=== PATIENT | female | born 1995 | race Caucasian/White ===

== ENCOUNTER 2023-12-03 09:06 | Emergency (ER) | payer OTHER ==
[2023-12-03] MEDS ORDERED: SMZ./TMP. 800/160 MG TABLET ONE (09:48)
[2023-12-03] MEDS ORDERED: IBUPROFEN 400 MG TAB ONE (09:48)
[2023-12-03] MEDS ORDERED: IBUPROFEN 200 MG TAB PO ONE (09:48)
[2023-12-03] MEDS ORDERED: levoFLOXacin 750 MG TAB ONE (09:49)
--- NOTE | 2023-12-03 09:53 | EDPHYS ---
Physician Documentation [facility] Name: Kaitlyn Roach Age: 28 yrs Sex: Female : 1995 Arrival Date: 12/03/2023 Time: 09:06 Bed 14 Private MD: ED Physician Live Williamson HPI: 12/02 09:40 This 28 yrs old Female presents to ER via Ambulatory with complaints of Ear js Pain. 09:40 The patient presents with pain, swelling, tenderness. The complaints affect the right js ear. Modifying factors: The symptoms are alleviated by covering ear, the symptoms are aggravated by loud noise, touching. Associated signs and symptoms: Pertinent positives: sore throat. Severity of symptoms: At their worst the symptoms were mild moderate in the emergency department the symptoms are worse markedly. The patient has not experienced similar symptoms in the past. Historical: - Allergies: 09: Amoxicillin; aa5 - PMHx: : None; aa5 - PSHx: 09:13 Cholecystectomy; aa5 - Immunization history:: Adult Immunizations unknown. - Infectious Disease History:: Denies. - Social history:: Smoking status: Patient denies any tobacco usage or history of. ROS: :43 Constitutional: Negative for fever, chills, and weight loss, Eyes: Negative for injury, js pain, redness, and discharge, Neck: Negative for injury, pain, and swelling, Cardiovascular: Negative for chest pain, palpitations, and edema, Respiratory: Negative for shortness of breath, cough, wheezing, and pleuritic chest pain, Abdomen/GI: Negative for abdominal pain, nausea, vomiting, diarrhea, and constipation, Back: Negative for injury and pain, : Negative for injury, bleeding, discharge, and swelling, MS/Extremity: Negative for injury and deformity, Skin: Negative for injury, rash, and discoloration, Neuro: Negative for headache, weakness, numbness, tingling, and seizure, Psych: Negative for depression, anxiety, suicide ideation, homicidal ideation, and hallucinations, Allergy/Immunology: Negative for hives, rash, and allergies, Endocrine: Negative for neck swelling, polydipsia, polyuria, polyphagia, and marked weight changes, Hematologic/Lymphatic: Negative for swollen nodes, abnormal bleeding, and unusual bruising, :43 ENT: Positive for ear pain, Exam: 09:43 Constitutional: This is a well developed, well nourished patient who is awake, alert, js and in no acute distress. Head/Face: Normocephalic, atraumatic. Eyes: Pupils equal round and reactive to light, extra-ocular motions intact. Lids and lashes normal. Conjunctiva and sclera are non-icteric and not injected. Cornea within normal limits. Periorbital areas with no swelling, redness, or edema. Neck: Trachea midline, no thyromegaly or masses palpated, and no cervical lymphadenopathy. Supple, full range of motion without nuchal rigidity, or vertebral point tenderness. No Meningismus. Chest/axilla: Normal chest wall appearance and motion. Nontender with no deformity. No lesions are appreciated. Cardiovascular: Regular rate and rhythm with a normal S1 and S2. No gallops, murmurs, or rubs. Normal PMI, no JVD. No pulse deficits. Respiratory: Lungs have equal breath sounds bilaterally, clear to auscultation and percussion. No rales, rhonchi or wheezes noted. No increased work of breathing, no retractions or nasal flaring. Abdomen/GI: Soft, non-tender, with normal bowel sounds. No distension or tympany. No guarding or rebound. No evidence of tenderness throughout. Back: No spinal tenderness. No costovertebral tenderness. Full range of motion. Pelvic Exam: Normal external genitalia. Speculum exam with closed cervical os, no discharge or bleeding noted. Bimanual exam with normal adnexa, no adnexal or cervical motion tenderness. Normal uterus. Female : Normal external genitalia. Skin: Warm, dry with normal turgor. Normal color with no rashes, no lesions, and no evidence of cellulitis. MS/ Extremity: Pulses equal, no cyanosis. Neurovascular intact. Full, normal range of motion. Neuro: Awake and alert, GCS 15, oriented to person, place, time, and situation. Cranial nerves II-XII grossly intact. Motor strength 5/5 in all extremities. Sensory grossly intact. Cerebellar exam normal. Normal gait. Psych: Awake, alert, with orientation to person, place and time. Behavior, mood, and affect are within normal limits. 09:43 ENT: Ear canal(s): erythema, swelling, that is moderate, of the right canal, Vital Signs: 09:12 BP 115 / 69; Pulse 85; Resp 16 S; Temp 98.7(O); Pulse Ox 100% on R/A; Weight 65.32 kg aa5 (R); Height 5 ft. 4 in. (R); 09:12 Body Mass Index 24.72 (65.32 kg, 162.56 cm) aa5 MDM: 09:15 Patient medically screened. [facility] 09:50 Differential diagnosis: otitis media, otitis externa. Data reviewed: vital signs, js nurses notes. Consideration of Admission/Observation Escalation of care including admission/observation considered. I considered the following discharge prescriptions or medication management in the emergency department Medications were administered in the Emergency Department. See MAR. Historians other than the Patient: none. Care significantly affected by the following chronic conditions: none. Counseling: I had a detailed discussion with the patient and/or guardian regarding the historical points, exam findings, and any diagnostic results supporting the discharge/admit diagnosis, the need for outpatient follow up, for definitive care, an ENT specialist. Administered Medications: 09:52 Drug: Trimethoprim-Sulfamethoxazole PO (160 mg-800 mg (DS) 1 tablet PO once Route: PO; aa5 10:14 Follow up: Response: No adverse reaction aa5 09:52 Drug: Ibuprofen PO 600 mg PO once Route: PO; aa5 10:14 Follow up: Response: No adverse reaction aa5 09:52 Drug: LevOfloxacin PO 750 mg PO once Route: PO; aa5 10:14 Follow up: Response: No adverse reaction aa5 Disposition Summary: 12/03/23 09:53 Discharge Ordered Notes: Location: Home [facility] Problem: new js Symptoms: have improved js Condition: Stable js Diagnosis - Other infective otitis externa, right ear js Followup: js - With: Private Physician - When: 2 - 3 days - Reason: Recheck today's complaints, Continuance of care, Re-evaluation by your physician Followup: js - With: Clara Jackson MD - When: 2 - 3 days - Reason: Recheck today's complaints, Re-evaluation by your physician Discharge Instructions: - Discharge Summary Sheet js - Otitis Externa js - Otitis Externa, [id number] js Forms: - Medication Reconciliation Form js - Antibiotic Education js - Prescription Opioid Use js - Patient Portal Instructions js - Leadership Thank You Letter js - Work release form aa5 Prescriptions: - acetaminophen-codeine 300-30 mg Oral tablet - take 2 tablet ORAL route every 6 hours as needed for pain; 20 tablet; Refills: js 0, Product Selection Permitted - Clindamycin HCl 300 mg Oral capsule - take 1 capsule ORAL route every 6 hours for 7 days; 28 capsule; Refills: 0, js Product Selection Permitted - Mirela-D 12 Hour 60-120 mg Oral Tablet Sustained Release 12 hr - take 1 tablet ORAL route every 12 hours As needed; 20 tablet; Refills: 0, js Product Selection Permitted - Fluconazole 200 mg Oral tablet - take 1 tablet ORAL route once daily; 3 tablet; Refills: 0, Product Selection js Permitted - levofloxacin 750 mg Oral tablet - take 1 tablet ORAL route once daily; 7 tablet; Refills: 0, Product Selection js Permitted Signatures: Live Williamson MD MD cha Calderon, Audri RN RN aa5 Corrections: (The following items were deleted from the chart) 09:13 09:13 PMHx: UTI; aa5 aa5
--- NOTE | 2023-12-03 09:53 | ER ---
Nurse's Notes [facility] Name: Kaitlyn Roach Age: 28 yrs Sex: Female : 1995 Arrival Date: 12/03/2023 Time: 09:06 Bed 14 Private MD: Diagnosis: Other infective otitis externa, right ear Presentation: 12/02 09:12 Chief complaint: Patient states: milagros ear pain x 1 week, worse to right ear. Completed aa5 z-pack without relief. Coronavirus screen: At this time, the client does not indicate any symptoms associated with coronavirus-19. Ebola Screen: Patient denies travel to an Ebola-affected area in the 21 days before illness onset. Initial Sepsis Screen: Does the patient meet any 2 criteria? No. Patient's initial sepsis screen is negative. Does the patient have a suspected source of infection? No. Patient's initial sepsis screen is negative. Risk Assessment: Do you want to hurt yourself or someone else? Patient reports no desire to harm self or others. Onset of symptoms was November 2023. 09:12 Method Of Arrival: Ambulatory aa5 09:12 Acuity: MOE 5 aa5 Historical: - Allergies: 09:13 Amoxicillin; aa5 - PMHx: 09:13 None; aa5 - PSHx: 09:13 Cholecystectomy; aa5 - Immunization history:: Adult Immunizations unknown. - Infectious Disease History:: Denies. - Social history:: Smoking status: Patient denies any tobacco usage or history of. Screenin:15 [facility] ED Fall Risk Assessment (Adult) History of falling in the last 3 months, aa5 including since admission No falls in past 3 months (0 pts) Confusion or Disorientation No (0 pts) Intoxicated or Sedated No (0 pts) Impaired Gait No (0 pts) Mobility Assist Device Used No (0 pt) Altered Elimination No (0 pt) Score/Fall Risk Level 0 - 2 = Low Risk Oriented to surroundings, Maintained a safe environment, Educated pt \T\ family on fall prevention, incl call for assistance when getting out of bed. Abuse screen: Denies threats or abuse. Nutritional screening: No deficits noted. Tuberculosis screening: No symptoms or risk factors identified. Assessment: 09:12 General: Appears uncomfortable, Behavior is calm, cooperative. Pain: Complains of pain aa5 in right ear and left ear Pain currently is 8 out of 10 on a pain scale. Neuro: Level of Consciousness is awake, alert, obeys commands, Oriented to person, place, time, situation. Cardiovascular: Patient's skin is warm and dry. Respiratory: Airway is patent Respiratory effort is even, unlabored, Respiratory pattern is regular, symmetrical. GI: No signs and/or symptoms were reported involving the gastrointestinal system. : No signs and/or symptoms were reported regarding the genitourinary system. EENT: Reports pain in right ear and left ear. Derm: Skin is pink, warm \T\ dry. Musculoskeletal: Range of motion: intact in all extremities. 10:14 Reassessment: Patient is alert, oriented x 3, equal unlabored respirations, skin aa5 warm/dry/pink. Vital Signs: 09:12 BP 115 / 69; Pulse 85; Resp 16 S; Temp 98.7(O); Pulse Ox 100% on R/A; Weight 65.32 kg aa5 (R); Height 5 ft. 4 in. (R); 09:12 Body Mass Index 24.72 (65.32 kg, 162.56 cm) aa5 ED Course: 09:09 Patient arrived in ED. mg5 09:12 Arm band placed on. aa5 09:12 Patient has correct armband on for positive identification. Bed in low position. Call aa5 light in reach. Side rails up X 1. 09:13 Triage completed. aa5 09:15 Faby Baumann, RN is Primary Nurse. aa5 09:15 Live Williamson MD is Attending Physician. js 09:52 Clara Jackson MD is Referral Physician. js 10:14 No provider procedures requiring assistance completed. Patient did not have IV access aa5 during this emergency room visit. Administered Medications: 09:52 Drug: Trimethoprim-Sulfamethoxazole PO (160 mg-800 mg (DS) 1 tablet PO once Route: PO; aa5 10:14 Follow up: Response: No adverse reaction aa5 09:52 Drug: Ibuprofen PO 600 mg PO once Route: PO; aa5 10:14 Follow up: Response: No adverse reaction aa5 09:52 Drug: LevOfloxacin PO 750 mg PO once Route: PO; aa5 10:14 Follow up: Response: No adverse reaction aa5 Medication: 10:14 VIS not applicable for this client. aa5 Outcome: 09:53 Discharge ordered by . js 10:14 Discharged to home ambulatory, aa5 10:14 Condition: stable 10:14 Discharge instructions given to patient, Instructed on discharge instructions, follow up and referral plans. medication usage, Demonstrated understanding of instructions, follow-up care, medications, Prescriptions given X 5 10:15 Patient left the ED. aa5 Signatures: Live Williamson MD MD cha Calderon, Audri, RN RN aa5 Liza Salvador mg5 Corrections: (The following items were deleted from the chart) 09:13 09:13 PMHx: UTI; aa5 aa5
[2023-12-03 10:46] VITALS: BP 115/69; TEMP 98.7; O2SAT 100
== END 2023-12-03 10:15 | disposition home or self-care (01) ==
LOC: ER 09:06
DX: H60.391 Other infective otitis externa, right ear (principal); Z88.1 Allergy status to other antibiotic agents
CPT/HCPCS: 99283

== ENCOUNTER 2024-10-31 13:09 | Emergency (ER) | payer SELFPAY ==
[2024-10-31 14:42] LABS: Specific Gravity 1.006 (1.005-1.030)
[2024-10-31 14:43] LABS: Specific Gravity 1.008 (1.005-1.030); Sqamous Epithelial <5 /HPF (None Seen); Urine Bacteria None Seen /HPF (<20); Urine Bilirubin NEGATIVE (Negative); Urine Blood Negative (Negative); Urine Clarity Turbid (Clear); Urine Color Colorless (Yellow); Urine Culture Reflex Order NOT NEEDED; Urine Glucose NEGATIVE (Negative); Urine Ketones NEGATIVE (Negative); Urine Microscopic Reflex YN ORDER UMIC; Urine Mucus Slight /HPF (None Seen); Urine Nitrite NEGATIVE (Negative); Urine Protein NEGATIVE (Negative); Urine RBC <5 /HPF (None Seen); Urine Urobilinogen Normal (Normal); Urine WBC <5 /HPF (<5)
[2024-10-31 14:44] LABS: Absolute Basophils 0.1 K/uL (0-0.5); Absolute Eosinophils 0.1 K/uL (0-0.5); Absolute Monocytes 0.5 K/uL (0.1-1.3); Absolute Neutrophil 5.7 K/uL (1.8-8.0); Basophils % 0.9 % (0-1.3); Eosinophils % 1.3 % (0-4.4); Hematocrit 42.9 % (36.0-45.0); Hemoglobin 14.8 g/dL (12.0-15.0); Lymphocytes % 24.3 % (15.3-44.8); MCH 29.9 pg (27.0-35.0); MCHC 34.4 g/dL (32.0-36.0); MCV 87.1 fL (80-100); MPV 9.1 fL (7.6-11.3); Monocytes % 5.9 % (3.3-12.3); Neutrophils % 67.6 % (41.7-73.7); Nucleated Red Blood Cells % 0.2 % (0-0); Platelets 319 thou/uL (152-406); RBC Red Blood Cell Count 4.93 M/uL (3.86-4.86); Red Cell Distribution Width 13.6 % (12.1-15.2)
[2024-10-31 15:13] LABS: Albumin 4.1 g/dL (3.4-5.0); Albumin/Globulin Ratio 0.9 (1.1-1.8); Anion Gap 10.5 mEq/L (5.0-15.0); Bilirubin Total 0.4 mg/dL (0.2-1.0); Globulin 4.4 g/dL (2.3-3.5); Potassium 3.5 mEq/L (3.5-5.1); Protein, Total 8.5 g/dL (6.4-8.2)
[2024-10-31] MEDS ORDERED: FAMOTIDINE 20 MG/2 ML VIAL IV ONE (15:19)
[2024-10-31] MEDS ORDERED: ONDANSETRON 4 MG/2 ML VIAL ONE (15:19)
[2024-10-31] MEDS ORDERED: MORPHINE 4 MG/ML SYR ONE (15:19)
[2024-10-31] MEDS ORDERED: NA CHLORIDE 0.9% 1,000 ML ONE (15:19)
--- NOTE | 2024-10-31 15:46 | RAD REPORT ---
EXAMINATION: CT ABDOMEN AND PELVIS WITH CONTRAST CLINICAL INDICATION: Abdominal pain TECHNIQUE: CT abdomen and pelvis was performed, after the administration of 100 cc Isovue-300.. Sagit jazmin and coronal reconstructions were obtained. One or more of the following dose reduction techniques were used: Automated exposure control, adjustment of the mA and kV according to patient si ze, and iterative reconstruction. Unless otherwise specified, incidental findings do not require dedicated imaging follow-up. [id number]. Oral contrast was not given which limits evaluation of bowel and appendix. COMPARISON: .2016 FINDINGS: Cholecystectomy. Left lobe of the liver is prominent. Liver otherwise unremarkable spleen, pancreas, adrenals and kidneys appear unremarkable No evidence of diverticulitis. Normal appendix. Small umbilical hernia. No adnexal mass. : IMPRESSION: No acute abnormality displayed
[2024-10-31] MEDS ORDERED: MAGNES/ALUMIN/SIMET 30ML UCUP ONE (16:43)
[2024-10-31] MEDS ORDERED: LIDOCAINE VISCOUS 2% 10ML ORAL SOLN ONE (16:43)
--- NOTE | 2024-10-31 16:45 | ER ---
Nurse's Notes [facility] Name: Kaitlyn Roberts Age: 29 yrs Sex: Female : 1995 Arrival Date: 10/31/2024 Time: 13:09 Bed 23 Private MD: Diagnosis: Abdominal tenderness;Abdominal pain, Generalized;Vomiting Presentation: 10/31 13:29 Chief complaint: Patient states: she started having abdominal pain, nausea, dizziness ap3 and bloating yesterday. patient currently rates her pain as a 9/10 on the pain scale. Coronavirus screen: At this time, the client does not indicate any symptoms associated with coronavirus-19. Ebola Screen: No symptoms or risks identified at this time. Initial Sepsis Screen: Does the patient meet any 2 criteria? No. Patient's initial sepsis screen is negative. Does the patient have a suspected source of infection? No. Patient's initial sepsis screen is negative. Risk Assessment: Do you want to hurt yourself or someone else? Patient reports no desire to harm self or others. Onset of symptoms was October 30, 2024. 13:29 Method Of Arrival: Ambulatory ap3 13:29 Acuity: MOE 3 ap3 Triage Assessment: 13:30 General: Appears uncomfortable, Behavior is calm, cooperative, appropriate for age. ap3 Pain: Complains of pain in abdomen Pain currently is 9 out of 10 on a pain scale. Neuro: Level of Consciousness is awake, alert, obeys commands, Oriented to person, place, time, situation, Appropriate for age. Neuro: Reports dizziness. Cardiovascular: Patient's skin is warm and dry. Respiratory: Airway is patent Respiratory effort is even, unlabored, Respiratory pattern is regular, symmetrical. GI: Reports lower abdominal pain, upper abdominal pain, nausea. [employer]: 13:31 LMP N/A - control method, Not ap3 Historical: - Allergies: 13:30 Amoxicillin; ap3 - PSHx: 13:30 Cholecystectomy; ap3 - Immunization history:: Client reports receiving the 2nd dose of the Covid vaccine. - Infectious Disease History:: Denies. - Social history:: Smoking status: Patient denies any tobacco usage or history of. Screenin:31 Abuse screen: Denies threats or abuse. Nutritional screening: No deficits noted. ap3 Tuberculosis screening: No symptoms or risk factors identified. 15:20 [facility] ED Fall Risk Assessment (Adult) History of falling in the last 3 months, jb4 including since admission No falls in past 3 months (0 pts) Confusion or Disorientation No (0 pts) Intoxicated or Sedated No (0 pts) Impaired Gait No (0 pts) Mobility Assist Device Used No (0 pt) Altered Elimination No (0 pt) Score/Fall Risk Level 0 - 2 = Low Risk Oriented to surroundings, Maintained a safe environment. Assessment: 15:20 General: Appears in no apparent distress. uncomfortable, Behavior is calm, cooperative. jb4 Pain: Complains of pain in right lower quadrant and left lower quadrant Pain does not radiate. Pain currently is 9 out of 10 on a pain scale. Neuro: Level of Consciousness is awake, alert, obeys commands, Oriented to person, place, time, situation. Cardiovascular: Patient's skin is warm and dry. Respiratory: Airway is patent Respiratory effort is even, unlabored, Respiratory pattern is regular, symmetrical. GI: Abdomen is flat, non-distended, Reports lower abdominal pain, nausea. Derm: Skin is intact, Skin is pink, warm \T\ dry. Musculoskeletal: Circulation, motion, and sensation intact. Range of motion: intact in all extremities. 16:25 Reassessment: Patient appears in no apparent distress at this time. Patient and/or jb4 family updated on plan of care and expected duration. Pain level reassessed. Patient is alert, oriented x 3, equal unlabored respirations, skin warm/dry/pink. Patient states feeling better. 17:00 Reassessment: Patient appears in no apparent distress at this time. Patient and/or jb4 family updated on plan of care and expected duration. Pain level reassessed. Patient is alert, oriented x 3, equal unlabored respirations, skin warm/dry/pink. Vital Signs: 13:29 BP 112 / 72; Pulse 87; Resp 18; Temp 98.8; Pulse Ox 100% ; Weight 68.04 kg; Height 5 ap3 ft. 4 in. ; Pain 9/10; 16:00 BP 125 / 79; Pulse 76; Resp 16; Pulse Ox 100% on R/A; jb4 13:29 Body Mass Index 25.75 (68.04 kg, 162.56 cm) ap3 13:29 Pain Scale: Adult ap3 ED Course: 13:13 Patient arrived in ED. al6 13:23 Live Williamson MD is Attending Physician. js 13:30 Triage completed. ap3 13:31 Arm band placed on right wrist. ap3 14:29 CBC with Diff Sent. bc6 14:29 CMP Sent. bc6 14:29 Lipase Sent. bc6 14:29 Test, Urine Sent. bc6 14:29 Urinalysis w/ reflexes Sent. bc6 14:29 Initial lab(s) drawn, by me, sent to lab. Urine collected: clean catch specimen, clear. bc6 Inserted saline lock: 24 gauge in right antecubital area, using aseptic technique. Blood collected. Flushed with 10 mL NS. 14:58 CT Abd/Pelvis - IV Contrast Only In Process Unspecified. EDMS 15:20 Patient has correct armband on for positive identification. Bed in low position. Call jb4 light in reach. Side rails up X 1. Provided Education on: plan of care. 16:24 Toney Reyez RN is Primary Nurse. jb4 16:44 Bakari Abdi MD is Referral Physician. [facility] 17:00 No provider procedures requiring assistance completed. IV discontinued, intact, jb4 bleeding controlled, No redness/swelling at site. Pressure dressing applied. Administered Medications: 15:32 Drug: Famotidine IVP 20 mg IVP once; dilute with 10 mL 0.9% NaCl; give over 2 minutes jb4 Route: IVP; Site: right antecubital; 17:16 Follow up: Response: No adverse reaction jb4 15:32 Drug: Ondansetron IVP 4 mg IVP once; over 2 minutes Route: IVP; Site: right antecubital;jb4 17:17 Follow up: Response: No adverse reaction; Marked relief of symptoms; Nausea is decreasedjb4 15:32 Drug: morphine IVP or IV 4 mg IVP once over 4 mins Route: IVP; Infused Over: 4 mins; jb4 Site: right antecubital; 17:17 Follow up: Response: No adverse reaction; Marked relief of symptoms; Pain is decreased; jb4 RASS: Alert and Calm (0) 15:32 Drug: NS 0.9% IV 1000 ml IV at 1 bolus Per protocol; to be given as a bolus over 60 jb4 minutes Route: IV; Rate: 1 bolus; Site: right antecubital; 17:17 Follow up: Response: No adverse reaction; IV Status: Pt discharged; IV Intake: 900ml jb4 16:50 Drug: GI Cocktail without - (Maalox PO 30 ml, Lidocaine Mucous Membrane 2 % 15 jb4 ml) PO once Route: PO; 17:16 Follow up: Response: No adverse reaction jb4 Medication: 17:00 VIS not applicable for this client. jb4 Intake: 17:17 IV: 900ml; Total: 900ml. jb4 Outcome: 16:45 Discharge ordered by . js 17:00 Discharged to home via wheelchair, with friend, kayla 17:00 Admitted to 17:00 Condition: stable 17:00 Discharge instructions given to patient, Instructed on discharge instructions, follow up and referral plans. no drinking with medication, medication usage, Demonstrated understanding of instructions, follow-up care, medications, Prescriptions given X 4, 17:14 Patient left the ED. jb4 Signatures: Dispatcher [employer] EDMS Live Williamson MD MD cha Bryson, James, RN RN jb4 Jesika Arevalo RN RN ap3 Awa Kaur 6 Irina Brewer6
--- NOTE | 2024-10-31 16:45 | EDPHYS ---
Physician Documentation [facility] Name: Kaitlyn Roberts Age: 29 yrs Sex: Female : 1995 Arrival Date: 10/31/2024 Time: 13:09 Bed 23 Private MD: TAWANDA Physician Live Williamson HPI: 10/31 16:40 This 29 yrs old Female presents to ER via Ambulatory with complaints of js Abdominal Pain. 16:40 The patient presents with abdominal pain in the upper abdomen, in the lower abdomen. js Onset: The symptoms/episode began/occurred 2 day(s) ago. The symptoms do not radiate. Associated signs and symptoms: Pertinent positives: nausea and vomiting. Modifying factors: The symptoms are alleviated by nothing, the symptoms are aggravated by movement, pressure. Severity of pain: At its worst the pain was moderate in the emergency department the pain is unchanged. The patient has experienced similar episodes in the past, a few times. ROUTEMAN: 13:31 LMP N/A - control method, Not ap3 Historical: - Allergies: 13:30 Amoxicillin; ap3 - PSHx: 13:30 Cholecystectomy; ap3 - Immunization history:: Client reports receiving the 2nd dose of the Covid vaccine. - Infectious Disease History:: Denies. - Social history:: Smoking status: Patient denies any tobacco usage or history of. ROS: 16:41 Constitutional: Negative for fever, chills, and weight loss, Eyes: Negative for injury, js pain, redness, and discharge, ENT: Negative for injury, pain, and discharge, Neck: Negative for injury, pain, and swelling, Cardiovascular: Negative for chest pain, palpitations, and edema, Respiratory: Negative for shortness of breath, cough, wheezing, and pleuritic chest pain, Back: Negative for injury and pain, : Negative for injury, bleeding, discharge, and swelling, MS/Extremity: Negative for injury and deformity, Skin: Negative for injury, rash, and discoloration, Neuro: Negative for headache, weakness, numbness, tingling, and seizure, Psych: Negative for depression, anxiety, suicide ideation, homicidal ideation, and hallucinations, Allergy/Immunology: Negative for hives, rash, and allergies, Endocrine: Negative for neck swelling, polydipsia, polyuria, polyphagia, and marked weight changes, Hematologic/Lymphatic: Negative for swollen nodes, abnormal bleeding, and unusual bruising, 16:41 Abdomen/GI: Positive for abdominal pain, nausea and vomiting, of the right upper quadrant, left upper quadrant, right lower quadrant and left lower quadrant, Exam: 16:41 Constitutional: This is a well developed, well nourished patient who is awake, alert, js and in no acute distress. Head/Face: Normocephalic, atraumatic. Eyes: Pupils equal round and reactive to light, extra-ocular motions intact. Lids and lashes normal. Conjunctiva and sclera are non-icteric and not injected. Cornea within normal limits. Periorbital areas with no swelling, redness, or edema. ENT: Nares patent. No nasal discharge, no septal abnormalities noted. Tympanic membranes are normal and external auditory canals are clear. Oropharynx with no redness, swelling, or masses, exudates, or evidence of obstruction, uvula midline. Mucous membranes moist. Neck: Trachea midline, no thyromegaly or masses palpated, and no cervical lymphadenopathy. Supple, full range of motion without nuchal rigidity, or vertebral point tenderness. No Meningismus. Chest/axilla: Normal chest wall appearance and motion. Nontender with no deformity. No lesions are appreciated. Cardiovascular: Regular rate and rhythm with a normal S1 and S2. No gallops, murmurs, or rubs. Normal PMI, no JVD. No pulse deficits. Respiratory: Lungs have equal breath sounds bilaterally, clear to auscultation and percussion. No rales, rhonchi or wheezes noted. No increased work of breathing, no retractions or nasal flaring. Back: No spinal tenderness. No costovertebral tenderness. Full range of motion. Skin: Warm, dry with normal turgor. Normal color with no rashes, no lesions, and no evidence of cellulitis. MS/ Extremity: Pulses equal, no cyanosis. Neurovascular intact. Full, normal range of motion., bilateral aka Neuro: Awake and alert, GCS 15, oriented to person, place, time, and situation. Cranial nerves II-XII grossly intact. Motor strength 5/5 in all extremities. Sensory grossly intact. Cerebellar exam normal. Normal gait. Psych: Awake, alert, with orientation to person, place and time. Behavior, mood, and affect are within normal limits. 16:41 Abdomen/GI: Inspection: abdomen appears normal, Bowel sounds: normal, Palpation: mild abdominal tenderness, moderate abdominal tenderness, in the right upper quadrant, left upper quadrant, right lower quadrant and left lower quadrant, Liver: no appreciated palpable abnormalities, Hernia: not appreciated, 16:41 Musculoskeletal/extremity: DVT Exam: No signs of deep vein thrombosis. no pain, no swelling, no tenderness, negative Homans' sign noted on exam, no appreciated bluish discoloration, no erythema, no increased warmth, Vital Signs: 13:29 BP 112 / 72; Pulse 87; Resp 18; Temp 98.8; Pulse Ox 100% ; Weight 68.04 kg; Height 5 ap3 ft. 4 in. ; Pain 9/10; 16:00 BP 125 / 79; Pulse 76; Resp 16; Pulse Ox 100% on R/A; jb4 13:29 Body Mass Index 25.75 (68.04 kg, 162.56 cm) ap3 13:29 Pain Scale: Adult ap3 MDM: 13:23 Medical Screening Exam initiated js 13:33 Medical Screening Exam initiated js 16:42 Differential diagnosis: bowel obstruction, diverticulitis, Endometriosis, gastritis, GI js Bleed, Mesenteric ischemia or infarction, non-specific abd pain. Data reviewed: vital signs, nurses notes, lab test result(s), radiologic studies, CT scan. Consideration of Admission/Observation Escalation of care including admission/observation considered. I considered the following discharge prescriptions or medication management in the emergency department Medications were administered in the Emergency Department. See MAR. Independent interpretation of the following test(s) in the Emergency Department CT Scan: My interpretation is ct ab/pel. Test considered but Not performed: Ultrasound no gb. Historians other than the Patient: pt well informed. Care significantly affected by the following chronic conditions: gb, obese. Counseling: I had a detailed discussion with the patient and/or guardian regarding the historical points, exam findings, and any diagnostic results supporting the discharge/admit diagnosis, lab results, radiology results, the need for outpatient follow up, for definitive care, a family practitioner, a programming manager. 10/31 13:25 Order name: CBC with Diff; Complete Time: 16:28 [facility] 10/31 13:25 Order name: CMP; Complete Time: 16:28 [facility] 10/31 13:25 Order name: Lipase; Complete Time: 16:28 [facility] 10/31 13:25 Order name: Test, Urine; Complete Time: 16:28 [facility] 10/31 13:25 Order name: Urinalysis w/ reflexes; Complete Time: 16:28 [facility] 10/31 13:25 Order name: CT Abd/Pelvis - IV Contrast Only; Complete Time: 16:28 [facility] 10/31 13:25 Order name: IV Saline Lock; Complete Time: 14:29 [facility] 10/31 13:25 Order name: Labs collected and sent; Complete Time: 14:29 js Administered Medications: 15:32 Drug: Famotidine IVP 20 mg IVP once; dilute with 10 mL 0.9% NaCl; give over 2 minutes jb4 Route: IVP; Site: right antecubital; 17:16 Follow up: Response: No adverse reaction jb4 15:32 Drug: Ondansetron IVP 4 mg IVP once; over 2 minutes Route: IVP; Site: right antecubital;jb4 17:17 Follow up: Response: No adverse reaction; Marked relief of symptoms; Nausea is decreasedjb4 15:32 Drug: morphine IVP or IV 4 mg IVP once over 4 mins Route: IVP; Infused Over: 4 mins; jb4 Site: right antecubital; 17:17 Follow up: Response: No adverse reaction; Marked relief of symptoms; Pain is decreased; jb4 RASS: Alert and Calm (0) 15:32 Drug: NS 0.9% IV 1000 ml IV at 1 bolus Per protocol; to be given as a bolus over 60 jb4 minutes Route: IV; Rate: 1 bolus; Site: right antecubital; 17:17 Follow up: Response: No adverse reaction; IV Status: Pt discharged; IV Intake: 900ml jb4 16:50 Drug: GI Cocktail without - (Maalox PO 30 ml, Lidocaine Mucous Membrane 2 % 15 jb4 ml) PO once Route: PO; 17:16 Follow up: Response: No adverse reaction jb4 Disposition Summary: 10/31/24 16:45 Discharge Ordered Notes: Location: Home js Problem: new js Symptoms: have improved js Condition: Stable js Diagnosis - Abdominal tenderness js - Abdominal pain, Generalized js - Vomiting js Followup: js - With: Private Physician - When: 2 - 3 days - Reason: Recheck today's complaints, Continuance of care, Re-evaluation by your physician Followup: js - With: Jin, Bakari, MD - When: 2 - 3 days - Reason: Recheck today's complaints, Re-evaluation by your physician Discharge Instructions: - Discharge Summary Sheet js - Abdominal Pain, Adult js - Nausea and Vomiting, Adult js - Nausea and Vomiting, Adult, [id number] js - Abdominal Pain, Adult, [id number] js Forms: - Medication Reconciliation Form js - Antibiotic Education js - Prescription Opioid Use js - Patient Portal Instructions js - Leadership Thank You Letter [facility] - Work release form ss Prescriptions: - ondansetron 4 mg Oral Tablet,disintegrating - take 1 tablet ORAL route every 8 hours for 5 days prn; 20 tablet; Refills: 0, [facility] Product Selection Permitted - Carafate 1 gram Oral tablet - take 1 tablet ORAL route 4 times per day take on an empty stomach, beginning on [facility] waking and last dose at bedtime; 50 tablet; Refills: 0, Product Selection Permitted - Pepcid 20 mg Oral tablet - take 1 tablet ORAL route every 12 hours for 21 days; 42 tablet; Refills: 0, [facility] Product Selection Permitted - dicyclomine 20 mg Oral tablet - take 1 tablet ORAL route 4 times per day; 28 tablet; Refills: 0, Product js Selection Permitted Signatures: Dispatcher [employer] EDMS Live Williamson MD MD cha Bryson, James, RN RN jb4 Jesika Arevalo, RN RN ap3 Corrections: (The following items were deleted from the chart) 13: 13:26 CBC+H.LAB.BRZ ordered. EDMS EDMS 13: 13:26 COMPREHENSIVE METABOLIC PANEL+C.LAB.BRZ ordered. EDMS EDMS 13: 13:26 LIPASE+C.LAB.BRZ ordered. EDMS EDMS 13: 13:26 Test, Urine+UC.LAB.BRZ ordered. EDMS EDMS 13: 13:26 Urinalysis+U.LAB.BRZ ordered. EDMS EDMS 13: 13:26 Abdomen Pelvis W Con+CT.RAD.BRZ ordered. EDMS EDMS 13: 13:26 Abdomen Limited+US.RAD.BRZ ordered. EDMS EDMS
[2024-10-31 17:23] VITALS: O2SAT 100
[2024-10-31 17:25] VITALS: BP 112/72; TEMP 98.8
== END 2024-10-31 17:14 | disposition home or self-care (01) ==
LOC: ER 13:09
DX: R10.84 Generalized abdominal pain (principal); R11.10 Vomiting, unspecified
CPT/HCPCS: 36415; 74177; 80053; 81001; 81025; 83690; 85025; 96361; 96374; 96375; 99285; J2405; J7030; Q9967